=== PATIENT | male | born 1975 | race Caucasian/White ===

== ENCOUNTER 2020-05-10 14:39 | Emergency (ER) | payer SELFPAY ==
[~2020-05-10] VITALS: Ht 172.7 cm; Wt 85.7 kg
[2020-05-10 14:50] VITALS: BP 140/81
[2020-05-10 15:20] VITALS: BP 140/81
== END 2020-05-10 15:20 | disposition home or self-care (01) ==
LOC: MED 14:39
DX: J32.0 Chronic maxillary sinusitis (principal); Z20.828 Contact with and (suspected) exposure to other viral communicable diseases; Z90.49 Acquired absence of other specified parts of digestive tract
CPT/HCPCS: 99283; U0003